=== PATIENT | male | born 1960 | race Caucasian/White ===

== ENCOUNTER 2017-07-26 18:30 | Emergency (ER) | payer MEDICARE | END 2017-07-26 22:28 | disposition home or self-care (01) | LOC: ER1 18:30 | DX: S46.911A Strain of unspecified muscle, fascia and tendon at shoulder and upper arm level, right arm, initial encounter (principal); Z88.6 Allergy status to analgesic agent; W11.XXXA Fall on and from ladder, initial encounter; Y92.009 Unspecified place in unspecified non-institutional (private) residence as the place of occurrence of the external cause | CPT/HCPCS: 71010; 73030; 73060; 99283 ==

== ENCOUNTER → 2021-06-02 | Outpatient (CLI) | payer MEDICARE | LOC: RAD 10:49 | DX: M51.36 Other intervertebral disc degeneration, lumbar region (principal); M62.838 Other muscle spasm; M54.32 Sciatica, left side | CPT/HCPCS: 72100 ==

== ENCOUNTER → 2022-08-05 | Outpatient (CLI) | payer MEDICARE ==
[2022-08-05 13:37] LABS: HEMOGLOBIN 13.4 gm/dl (14.0-17.5); RED BLOOD COUNT 4.72 M/UL (4.20-5.50); WHITE BLOOD COUNT 7.4 K/UL (4.5-11.0)
[2022-08-05 14:36] LABS: BUN/CREATININE RATIO 20 (0-10)
[2022-08-09 08:14] LABS: CHOLESTEROL, TOTAL 195 mg/dL (100-199); HDL CHOLESTEROL 37 mg/dL (>39); LDL CHOLESTEROL CALC 116 mg/dL (0-99); LDL/HDL RATIO 3.1 ratio (0.0-3.6); T. CHOL/HDL RATIO 5.3 ratio (0.0-5.0); TRIGLYCERIDES 239 mg/dL (0-149)
== END ==
LOC: RAD 13:04
PROVIDERS: Nurse Practitioner Family
DX: E78.5 Hyperlipidemia, unspecified (principal); I10 Essential (primary) hypertension; M25.562 Pain in left knee; M25.462 Effusion, left knee
CPT/HCPCS: 36415; 73564; 80053; 80061; 85025